=== PATIENT | female | born 1965 | race Caucasian/White ===

== ENCOUNTER → 2016-12-24 | Outpatient (CLI) | payer MEDICAID ==
[~2016-12-24] VITALS: Ht 154.9 cm; Wt 67.4 kg
[~2016-12-24] MED LIST: ASPIRIN EC81 MG PO; ATIVAN 0.5MG0.5 MG PO; DESYREL50 MG PO; FLEXERIL10 MG PO; KLOR-CON 1010 MEQ PO; KLOR-CON M1010 MEQ PO; LASIX20 MG PO; LIPITOR20 M1 PO; LOPRESSOR25 MG PO; MELATONIN10 M2 PO; METOPROLOL SUCC25 MG PO; OMEPRAZOLE20 MG PO; ULTRAM50 MG PO
--- NOTE | ~2016-12-24 | ECHO ---
Transesophageal Echocardiography Report (HOWARD) Demographics Patient Name TOMASA PINEDA Date of Study 12/24/2016 C Patient Number [id number] Visit Number [id number] Date of 1965 Room Number Gender Female Number Age 51 year(s) Referring Myron Clerk Carrier Daija Field RVT Physician Ignacio Jain Physician Interpreting Myron Pierre Central Control Room Operator Physician Supervising Ordering Myron Pierre MD/MLLaila Physician Nurse Stress Accountant Certified Public Conclusions Summary Transesophageal echocardiogram was done under general anesthesia without difficult probe placement . The estimated LV ejection fraction is 60-65 %. Normal left ventricular systolic function. Normal right ventricular function. Severely enlarged left atrium. Moderately enlarged right atrium. There is no evidence of PFO or ASD by color Doppler. There is no evidence of LA or KATIA appendage thrombus. Severe mitral valve regurgitation. No aortic valve insufficiency. No aortic stenosis. Severe tricuspid regurgitation by color Doppler. There is severe pulmonary hypertension. The pulmonary pressure (RVSP) is 55-60 mmHg. Mild thoracic aorta atheroma. Procedure Type of Study HOWARD procedure Procedure Date Date: 12/24/2016 Start: 09:17 AM Study Location: Inpatient Portable Technical Quality: Adequate visualization Indications:Mitral Stenosis and Mitral Insufficiency. Appropriate Use Criteria: 9 Patient Status: Routine HR: 79 bpm BP: 100/65 mmHg Findings Aortic Valve The aortic valve is mildly sclerotic. Tricuspid Valve Severe tricuspid regurgitation by color Doppler. There is severe pulmonary hypertension. The pulmonary pressure (RVSP) is 55-60 mmHg. Contractility Score LV regional wall motion:(0-Non visualized 1-Normal 2-Hypokinesis 3-Akinesis 4-Dyskinesis 5-Aneurysm) Signature dtt: IGNACIO PHILLIP dtd: 12/24/16916 Physician Self Edit
== END | disposition disaster alternative care site (69) ==
LOC: GOPD 12-19 → GCAR 07:42 → GOPD 08:00
DX: I05.2 Rheumatic mitral stenosis with insufficiency (principal); I36.1 Nonrheumatic tricuspid (valve) insufficiency; I27.2 Other secondary pulmonary hypertension; I70.0 Atherosclerosis of aorta
CPT/HCPCS: J2001; J2405; J7030

== ENCOUNTER 2016-12-30 07:48 | Outpatient (CLI) | payer MEDICAID ==
[~2016-12-30] VITALS: Ht 154.9 cm; Wt 66.0 kg
--- NOTE | ~2016-12-30 | CATH ---
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 RCA: Dominant, no significant epicardial disease 2. Moderate pulmonary hypertension. 3. Mean PA 29 mmHg. Pa 38/21 mmHg. 4. RA 4 mmHg. 5. No gradient across LV. 6. PA sat 60%. 7. LVEDP 10 mmHg. Diagnostic Recommendations 1. Refer to CT surgeon for consideration for MVR. 2. Medical therapy for moderate CAD. Procedure Description The patient was brought to the diagnostic cardiac catheterization-EP laboratory in the fasting, non-sedated state. Informed consent was obtained in the written and verbal form after the risks and benefits were explained. The patient had no further questions and agreed to proceed. The planned puncture-incision site(s) were shaved and prepped with ChloraPrep and draped in the usual sterile manner. Conscious sedation and pain control medications were delivered by a registered nurse under physician guidance. Surface ECG rhythm, blood pressure measurement, and pulse oximetry were monitored throughout the procedure. Arterial access. The access site in the right wrist was infiltrated with lidocaine. The vessel was entered with the Seldinger technique. A sheath was advanced into the vessel and used for catheter placement. Venous access. The access site in right elbow was infiltrated with 2% lidocaine. The vessel was entered with the Seldinger technique. A sheath was advanced into the vessel and used for catheter placement. Selective left coronary angiography. A catheter was advanced into the left coronary vessel ostium under Fluoroscopic guidance. Contrast was injected by hand. Images were obtained in multiple projections. Selective right coronary angiography. A catheter was advanced into the right coronary vessel ostium under fluoroscopic guidance. Contrast was injected by hand. Images were obtained in multiple projections. Left heart catheterization. A catheter was advanced across the aortic valve to the left ventricle under fluoroscopic guidance. Resting hemodynamics were obtained. Right heart catheterization. A [place] Ed catheter was successfully advanced to the right atrium, right ventricle, pulmonary artery, and pulmonary artery wedge position under fluoroscopic guidance. Resting hemodynamics were obtained. Measurements included pressures, arterial and venous oxygen saturation samples, and cardiac output. The [place] was removed without difficulty. Arterial and Venous hemostasis was achieved. The patient was transferred to a regular nursing floor via cart accompanied by a nurse. The patient left the laboratory in stable condition. Diagnostic Cath Status: Elective Procedure Procedure Type Diagnostic procedure:Angiography:, Right and Left Heart Cath, Coronary Angios Indications: Chest pain, Shortness of breath, Mitral Regurgation and Pre op heart valve surgery. The procedure was explained in detail to the patient. Risks, complications and alternative treatments were reviewed. Written consent was obtained. Medications Reviewed with Patient prior to Procedure. Angiographic Findings Dominance: Right Cardiac Arteries and Lesion Findings LMCA: Normal (0% Stenosis). LAD: Multiple stenosis. Lesion on Mid LAD: Mid subsection.30% stenosis . Lesion on 1st Diag: Ostial.50% stenosis . LCx: Single stenosis.There is a previous stent on Prox CX Proximal subsection showing focal ISR. Lesion on Prox CX: Proximal subsection.30% stenosis . The lesion was previously treated with the following techniques: stent unknown type. This is in-stentrestenosis. RCA: Minor Luminal Irregularities.PL normal. PDA normal. Coronary Tree Procedure Data Procedure Date Date: 12/30/2016Start: 09:58 AMEnd: 11:08 AM Entry Locations - Antegrade Percutaneous access was performed through the Right Brachial vein. A 6 Fr sheath was inserted. Hemostasis was successfully obtained using Manual Compression. Closure Comments: Pressure held by Cadence Rollins. - Retrograde Percutaneous access was performed through the Right Radial artery (Primary location). A 6 Fr sheath was inserted. Hemostasis was successfully obtained using Mechanical Compression. Closure Comments: 12 ml of air in R. Band by Cadence Rollins . Procedure Medications Order and Administration + + + + + !Time !Medication !Dosage !Route ! + + + + + 12/30/2016 09:58 AM !Versed !0.5 mg !I.V. ! + + + + + !12/30/2016 10:00 AM !Fentanyl !25 mcg !I.V. ! + + + + + 12/30/2016 10:29 AM !Heparin (ACC_3) !4000 units !I.V. bolus ! + + + + + !12/30/2016 10:30 AM !0.9% NaCl !500 ml !I.V. bolus ! + + + + + !12/30/2016 10:34 AM !Radial Verapamil !2.5 mg !I.A. ! + + + + + !12/30/2016 10:34 AM !Versed !1 mg !I.V. ! + + + + + Devices Used - A6 Fr. Balloon Wedge Catheterwas used for:Right heart cath. - A5 Fr. BS JR 4 Diag. Catheterwas used for:Right coronary angiography. - A5 Fr. BS JL 3.5 Diag. Catheterwas used for:Left coronary angiography. Contrast Material - Isovue 36334 ml Fluoroscopy Time: Diagnostic: 8:42 minutes. Total: 8:42 minutes. Fluoroscopy Dose: Diagnostic: 556 mGy. Total: 556 mGy. Estimated Blood Loss: 15 ml. Medical History Performed Procedures and Imaging Results - Echocardiographywas performed on 12/24/2016. Allergies - No known allergies. Risk Factors The patient risk factors include:prior PCI;treated hypercholesterolemia, family history of premature CAD, last creatinine: 1.2 mg/dl, creatinine clearance: 57.14 ml/min, prior valve surgery/procedure, dyslipidemia, Current/Recent(w/in 1 year) tobacco use and prior MD . Admission Data Admission Date: 12/30/2016 Admission Time: 07:48 AM Admit Source: Other Admission Medications + +------+------+ + + + + !Medication !Dosage!Times !Last !Last !Administered !Comments ! ! ! !Per !Delivery !Delivery ! ! ! ! ! !Day !Date !Time ! ! ! + +------+------+ + + + + !Aspirin ! ! ! ! ! ! ! !(any) ! ! ! ! ! ! ! + +------+------+ + + + + !Beta ! ! ! ! ! ! ! !Augustine ! ! ! ! ! ! ! !(any) ! ! ! ! ! ! ! + +------+------+ + + + + !Statin ! ! ! ! ! ! ! !(any) ! ! ! ! ! ! ! + +------+------+ + + + + Clinical Evaluation Leading to Procedure Diagnosed on 12/30/2016 12:00 AM. - There were no CAD presentation symptoms. - There were no anginal symptoms. Anti-anginal medications were prescribed during the past two weeks. The medication is: Beta Blockers. - The patient has been in a state of heart failure within the past two weeks. - The patient's heart failure status was assessed as NYHA Class III, with CHF symptoms of TELLEZ. Hemodynamics Condition: Rest O2 Consumption: Estimated: 169.61Heart Rate: 85 bpm Oxygen Saturation +--------+-----+----+ +----+ + !Location!pCO2 !pO2 !% Saturation !Hgb !O2 Content ! +--------+-----+----+ +----+ + !PA ! ! !60.4 !11.4! ! +--------+-----+----+ +----+ + !RA ! ! !55.7 !11.4! ! +--------+-----+----+ +----+ + !FA ! ! !91 !11.4! ! +--------+-----+----+ +----+ + Pressures (mmHg) +-----+ + !Site !Pressure ! +-----+ + !PCW !36 (24) ! +-----+ + !PCW !1618 (16) ! +-----+ + !PA !38/ (29) ! +-----+ + !RV !47/-6 ,8 ! +-----+ + !RV !48/-1 ,6 ! +-----+ + !RA !4/6 (4) ! +-----+ + !LV !88/1 ,10 ! +-----+ + !LV !85/0 ,10 ! +-----+ + !AO !86/55 (70) ! +-----+ + !AO !82/51 (67) ! +-----+ + Cardiac Output +------+ + + + !Method!CO (l/min) !CI (l/min/m2) !SV (ml) ! +------+ + + + !Du !3.57 !2.2 !42.14 ! +------+ + + + Shunts Oxygen Values O2 Capacity 155.04 O2 Consumption 169.61 Flows (l/min) Qs 3.1 Vascular Resistance (dynes x sec x cm-5) + +-----+-----+----+----+---------+-------+ !CO method !TSVR !SVR !TPVR!PVR !TPVR/TSVR!PVR/SVR! + +-----+-----+----+----+---------+-------+ !Du !18.69!17.65!8.25!3.67!0.44 !0.21 ! + +-----+-----+----+----+---------+-------+ !Qp or Qs !21.52!20.32! ! ! ! ! + +-----+-----+----+----+---------+-------+ Signatures dtt: IGNACIO PHILLIP dtd: 12/30/16 0958 Physician Self Edit
[2016-12-30 09:13] LABS: BASOPHIL # 0.1 K/uL (0.0-0.2); BASOPHIL % 0.9 %; EOSINOPHIL # 0.4 K/uL (0.0-0.5); EOSINOPHIL % 4.7 %; HEMATOCRIT 35.6 % (33.0-46.0); HEMOGLOBIN 11.4 g/dL (10.0-15.0); IMMATURE GRANULOCYTE % 0.2 %; LYMPHOCYTE # 2.9 K/uL (0.8-4.0); LYMPHOCYTE % 35.5 %; MCH 28.5 pg (27.0-34.0); MONOCYTE # 0.7 K/uL (0.0-1.0); MONOCYTE % 8.6 %; MPV 9.7 fl (9.4-12.4); NEUTROPHIL % 50.1 %; NRBC % 0 /100WBC (0-0.00); PLATELET COUNT 299 K/uL (150-450); RDW-CV 16.4 % (11.9-14.6)
[2016-12-30 09:21] LABS: INR - (THERAPEUTIC) 0.94 (0.92-1.07); PROTIME 9.9 SECONDS (9.8-11.4); PTT 26 SECONDS (25-32)
[2016-12-30 09:33] LABS: ALBUMIN 3.3 gm/dL (3.5-5.0); CREATININE 1.2 mg/dL (0.5-1.1); TOTAL BILIRUBIN 0.3 mg/dL (0.0-1.5); TOTAL PROTEIN 7.5 g/dL (6.0-8.4)
== END 2016-12-30 17:06 | disposition disaster alternative care site (69) ==
LOC: GPOC 07:48 → GPCU 07:48 → G3N 07:48 → GPOC 08:00
PROVIDERS: Internal Medicine Interventional Cardiology
PROC: 4A023N8 Measurement of Cardiac Sampling and Pressure, Bilateral, Percutaneous Approach (ICD-10-PCS; principal; 2016-12-30)
PROC: B216YZZ Fluoroscopy of Right and Left Heart using Other Contrast (ICD-10-PCS; 2016-12-30)
DX: I25.110 Atherosclerotic heart disease of native coronary artery with unstable angina pectoris (principal); R94.31 Abnormal electrocardiogram [ECG] [EKG]
CPT/HCPCS: C1894; J1644; J2001; J2250; J2370; J2405; J3010; J7030; J7040